=== PATIENT | female | born 1965 | race Caucasian/White ===

== ENCOUNTER → 2025-01-25 | Day surgery (SDC) | payer MEDICARE, MEDICAID ==
[~2025-01-25] VITALS: Ht 165.1 cm; Wt 78.5 kg
[~2025-01-25] MED LIST: ASCO500T20 PO; B50 PO; BACITRACIN 14GM TUBE TOP ONE; BUPIVACAINE HCL/PF 0.5% (5MG/ML) 10ML ONE; CYCL10TA21 PO; GLYCOPYRROLATE 0.2 MG/ML 2ML VIAL IV PRN; GLYCOPYRROLATE 0.2 MG/ML 2ML VIAL ONE; HYDR200T80 PO; HYDRALAZINE 20MG/ML VIAL IV PRN; HYDROMORPHONE HCL/PF 1MG/ML INJ IV PRN; HYDROMORPHONE HCL/PF 1MG/ML INJ ONE; LABETALOL 5MG/ML 4ML INJ IV PRN; LACTATED RINGERS 1,000 ML IV SCH; LIDOCAINE HCL 1% 20ML VIAL ONE; LIDOCAINE HCL/EPINEPHRINE 1%-EPI 1:100,000 20ML VIAL ONE; NEOSTIGMINE METHYLSULFATE 1MG/ML 10 ML VIAL ONE; POLYMYXIN B SULFATE 500000 UNITS/VIAL ONE; PRED2.5T4 PO; ROCURONIUM BROMIDE 10MG/ML VIAL 5ML IV ONE; TRAM50TA3 PO; ZINC1CAP2 PO
[2025-01-25] MEDS: HYDROMORPHONE HCL/PF 1MG/ML INJ IV PRN ×2 (09:51→10:03)
[2025-01-25] MEDS: ONDANSETRON HCL 4MG/2ML INJ IV PRN (10:07)
[2025-01-25 10:52] VITALS: BP 121/82; PULSE 86; RESP 24
[2025-01-25] MEDS: KETOROLAC 30MG/ML VIAL IV SCH (10:52)
== END | disposition home or self-care (01) ==
LOC: OR 05:11
PROVIDERS: ATTEND Specialist
DX: K64.8 Other hemorrhoids (principal); M79.7 Fibromyalgia; Z87.19 Personal history of other diseases of the digestive system; F17.210 Nicotine dependence, cigarettes, uncomplicated; Z90.710 Acquired absence of both cervix and uterus; Z98.890 Other specified postprocedural states
CPT/HCPCS: 46947; 88304; J1885; J0665; J3490 ×3; J2004; J2003; J2405; J1171; J2710